=== PATIENT | female | born 2005 | race Caucasian/White ===

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

== ENCOUNTER 2024-11-07 22:34 | Emergency (ER) | payer MEDICAID ==
[2024-11-08 00:04] LABS: BASOPHILS ABSOLUTE AUTO 0.03 K/uL (0.00-0.20); BASOPHILS PERCENT AUTO 0.3 % (0.0-1.0); EOSINOPHILS ABSOLUTE AUTO 0.04 K/uL (0.00-0.45); EOSINOPHILS PERCENT AUTO 0.4 % (0.0-6.0); IMMATURE GRAN ABSOLUTE AUTO 0.13 K/uL (0.00-0.05); IMMATURE GRAN PERCENT AUTO 1.1 % (0.0-0.4); LYMPHOCYTES ABSOLUTE AUTO 2.15 K/uL (1.00-4.80); MEAN CORPUSCULAR HEMOGLOBIN 28.7 pg (28.0-32.0); MEAN CORPUSCULAR HGB CONC 34.1 g/dL (32.0-36.0); MEAN CORPUSCULAR VOLUME 84.3 fL (83.0-99.0); MEAN PLATELET VOLUME 9.7 fL (9.4-12.3); MONOCYTES ABSOLUTE AUTO 0.72 K/uL (0.00-0.80); MONOCYTES PERCENT AUTO 6.4 % (0.0-8.0); NEUTROPHILS ABSOLUTE AUTO 8.26 K/uL (1.80-7.70); NEUTROPHILS PERCENT AUTO 72.8 % (41.0-71.0); PLATELET COUNT,PLT 249 K/uL (150-400); RED BLOOD CELL COUNT 5.22 M/uL (4.10-5.30); WHITE BLOOD CELL COUNT,WBC 11.33 K/uL (3.9-11.3)
[2024-11-08 00:18] LABS: BLOOD UREA NITROGEN,BUN 14 mg/dL (7.0-18.0); CALCIUM 8.8 mg/dL (8.5-10.1); CARBON DIOXIDE,CO2 27.4 mmol/L (21.0-32.0); CHLORIDE,CL 104 mmol/L (98-107); CREATININE 0.9 mg/dL (0.6-1.0); GLUCOSE RANDOM 108 mg/dL (74-106); POTASSIUM,K 3.8 mmol/L (3.5-5.1); SODIUM,NA 141 mmol/L (136-145)
[2024-11-08 00:20] LABS: ESTIMATED GFR 94 mL/min (>60); HCG QUANTITATIVE < 1.0 mIU/mL
== END 2024-11-08 01:30 | disposition home or self-care (01) ==
LOC: MW.ED 22:34
DX: R10.2 Pelvic and perineal pain (principal); F17.210 Nicotine dependence, cigarettes, uncomplicated; Z90.49 Acquired absence of other specified parts of digestive tract
CPT/HCPCS: 36415; 76830; 76830-26; 80048; 84702; 85025; 99284

== ENCOUNTER 2025-03-02 10:00 | Emergency (ER) | payer MEDICAID ==
[2025-03-02 10:51] LABS: BILIRUBIN,URINE NEGATIVE (NEGATIVE); COLOR,URINE YELLOW; GLUCOSE,URINE NEGATIVE (NEGATIVE); KETONES,URINE 15 mg/dL (NEGATIVE); LEUKOCYTE ESTERASE,URINE MODERATE (NEGATIVE); NITRITE,URINE POSITIVE (NEGATIVE); OCCULT BLOOD,URINE NEGATIVE (NEGATIVE); PH,URINE >= 9.0 (5.0-8.0); PROTEIN,URINE 30 mg/dL (NEGATIVE)
[2025-03-02 10:52] LABS: APPEARANCE,URINE CLOUDY
[2025-03-02] MEDS: Sodium Chloride 0.9% 1,000 ML IV ONE (10:57)
[2025-03-02] MEDS: Ondansetron 4 MG/2 ML SDV IVPUSH ONE (10:57)
[2025-03-02 10:59] LABS: AMORPHOUS SEDIMENT,URINE HEAVY (NEGATIVE); BACTERIA,URINE 4+ (NEGATIVE); MUCUS,URINE LIGHT (NONE-MOD); RBC,URINE 0-2 (0-2/HPF); SQUAMOUS EPITHELIAL CELLS,UR FEW; WBC,URINE 20-25 (0-5/HPF)
[2025-03-02 11:08] LABS: BASOPHILS ABSOLUTE AUTO 0.03 K/uL (0.00-0.20); BASOPHILS PERCENT AUTO 0.4 % (0.0-1.0); EOSINOPHILS ABSOLUTE AUTO 0.02 K/uL (0.00-0.45); EOSINOPHILS PERCENT AUTO 0.3 % (0.0-6.0); HEMATOCRIT 40.6 % (37.0-47.0); HEMOGLOBIN 13.9 g/dL (12.0-16.0); IMMATURE GRAN ABSOLUTE AUTO 0.02 K/uL (0.00-0.05); IMMATURE GRAN PERCENT AUTO 0.3 % (0.0-0.4); LYMPHOCYTES ABSOLUTE AUTO 2.02 K/uL (1.00-4.80); LYMPHOCYTES PERCENT AUTO 26.5 % (24.0-44.0); MEAN CORPUSCULAR HGB CONC 34.2 g/dL (32.0-36.0); MEAN CORPUSCULAR VOLUME 84.6 fL (83.0-99.0); MEAN PLATELET VOLUME 9.7 fL (9.4-12.3); MONOCYTES ABSOLUTE AUTO 0.55 K/uL (0.00-0.80); MONOCYTES PERCENT AUTO 7.2 % (0.0-8.0); NEUTROPHILS ABSOLUTE AUTO 4.99 K/uL (1.80-7.70); NEUTROPHILS PERCENT AUTO 65.3 % (41.0-71.0); PLATELET COUNT,PLT 237 K/uL (150-400); WHITE BLOOD CELL COUNT,WBC 7.63 K/uL (3.9-11.3)
[2025-03-02] MEDS: Dextrose 5%-0.9% NaCl 1,000 ML IV STA (11:23)
[2025-03-02 11:42] LABS: A/G RATIO 1.3 (0.9-1.6); ALBUMIN 3.7 g/dL (3.4-5.0); BILIRUBIN TOTAL 0.7 mg/dL (0.2-1.0); CALCIUM 8.5 mg/dL (8.5-10.1); CARBON DIOXIDE,CO2 26.7 mmol/L (21.0-32.0); CREATININE 0.9 mg/dL (0.6-1.0); EST CRCL DRUG DOSING (CG) 86.1 mL/min; POTASSIUM,K 3.7 mmol/L (3.5-5.1); PROTEIN TOTAL,TP 6.6 g/dL (6.4-8.2)
== END 2025-03-02 13:25 | disposition home or self-care (01) ==
LOC: MW.ED 10:00
DX: O21.0 Mild hyperemesis gravidarum (principal); O23.41 Unspecified infection of urinary tract in pregnancy, first trimester; N39.0 Urinary tract infection, site not specified; Z87.891 Personal history of nicotine dependence; Z3A.08 8 weeks gestation of pregnancy
CPT/HCPCS: 36415; 80053; 81001; 83735; 84702; 84703; 85025; 87086; 96361; 96374; 99284; J2405; J7030; J7042; 87088; 87186

== ENCOUNTER 2025-03-08 15:06 | Emergency (ER) | payer MEDICAID ==
[2025-03-08 16:21] LABS: BASOPHILS ABSOLUTE AUTO 0.04 K/uL (0.00-0.20); BASOPHILS PERCENT AUTO 0.4 % (0.0-1.0); EOSINOPHILS ABSOLUTE AUTO 0.02 K/uL (0.00-0.45); EOSINOPHILS PERCENT AUTO 0.2 % (0.0-6.0); HEMATOCRIT 43.9 % (37.0-47.0); IMMATURE GRAN ABSOLUTE AUTO 0.02 K/uL (0.00-0.05); IMMATURE GRAN PERCENT AUTO 0.2 % (0.0-0.4); LYMPHOCYTES ABSOLUTE AUTO 2.36 K/uL (1.00-4.80); LYMPHOCYTES PERCENT AUTO 22.6 % (24.0-44.0); MEAN CORPUSCULAR HEMOGLOBIN 28.7 pg (28.0-32.0); MEAN CORPUSCULAR HGB CONC 34.2 g/dL (32.0-36.0); MEAN CORPUSCULAR VOLUME 84.1 fL (83.0-99.0); MEAN PLATELET VOLUME 10.1 fL (9.4-12.3); MONOCYTES ABSOLUTE AUTO 0.78 K/uL (0.00-0.80); MONOCYTES PERCENT AUTO 7.5 % (0.0-8.0); NEUTROPHILS ABSOLUTE AUTO 7.22 K/uL (1.80-7.70); NEUTROPHILS PERCENT AUTO 69.1 % (41.0-71.0); PLATELET COUNT,PLT 293 K/uL (150-400); RED BLOOD CELL COUNT 5.22 M/uL (4.10-5.30); WHITE BLOOD CELL COUNT,WBC 10.44 K/uL (3.9-11.3)
[2025-03-08 17:03] LABS: A/G RATIO 1.4 (0.9-1.6); ALBUMIN 4.2 g/dL (3.4-5.0); BILIRUBIN TOTAL 0.6 mg/dL (0.2-1.0); CARBON DIOXIDE,CO2 25.8 mmol/L (21.0-32.0); EST CRCL DRUG DOSING (CG) 70.98 mL/min; POTASSIUM,K 3.5 mmol/L (3.5-5.1); PROTEIN TOTAL,TP 7.2 g/dL (6.4-8.2)
[2025-03-08 17:38] LABS: APPEARANCE,URINE SLT CLOUDY; GLUCOSE,URINE NEGATIVE (NEGATIVE); KETONES,URINE TRACE mg/dL (NEGATIVE); LEUKOCYTE ESTERASE,URINE NEGATIVE (NEGATIVE); NITRITE,URINE NEGATIVE (NEGATIVE); OCCULT BLOOD,URINE LARGE (NEGATIVE); PH,URINE 5.5 (5.0-8.0); PROTEIN,URINE TRACE mg/dL (NEGATIVE)
[2025-03-08 17:46] LABS: BILIRUBIN,URINE SMALL (NEGATIVE); COLOR,URINE DARK YELLOW
[2025-03-08 17:47] LABS: BACTERIA,URINE FEW (NEGATIVE); CALCIUM OXALATE CRYSTALS,URINE RARE (NEGATIVE); EPITHELIAL CELLS,URINE RARE (NONE-FEW); RBC,URINE TOO NUMEROUS TO CT (0-2/HPF); WBC,URINE 0-2 (0-5/HPF)
== END 2025-03-08 18:27 | disposition home or self-care (01) ==
LOC: MW.ED 15:06
DX: O03.9 Complete or unspecified spontaneous abortion without complication (principal); Z79.899 Other long term (current) drug therapy; Z75.3 Unavailability and inaccessibility of health-care facilities
CPT/HCPCS: 36415; 76801; 76801-26; 80053; 81001; 84702; 85025; 86900; 86901; 99284

== ENCOUNTER 2025-09-30 14:10 | Emergency (ER) | payer MEDICAID, OTHER ==
[2025-09-30] MEDS: Ketorolac 30 MG/ML SDV IVPUSH ONE (14:40)
[2025-09-30] MEDS: diphenhydrAMINE 50 MG/ML SDV IVPUSH ONE (14:40)
[2025-09-30] MEDS: Ondansetron 4 MG/2 ML SDV IVPUSH ONE (14:40)
[2025-09-30 14:48] LABS: BASOPHILS ABSOLUTE AUTO 0.03 K/uL (0.00-0.20); BASOPHILS PERCENT AUTO 0.5 % (0.0-1.0); EOSINOPHILS ABSOLUTE AUTO 0.03 K/uL (0.00-0.45); EOSINOPHILS PERCENT AUTO 0.5 % (0.0-6.0); IMMATURE GRAN ABSOLUTE AUTO 0.01 K/uL (0.00-0.05); IMMATURE GRAN PERCENT AUTO 0.2 % (0.0-0.4); LYMPHOCYTES ABSOLUTE AUTO 1.77 K/uL (1.00-4.80); LYMPHOCYTES PERCENT AUTO 30.4 % (24.0-44.0); MEAN PLATELET VOLUME 9.8 fL (9.4-12.3); MONOCYTES ABSOLUTE AUTO 0.50 K/uL (0.00-0.80); MONOCYTES PERCENT AUTO 8.6 % (0.0-8.0); NEUTROPHILS ABSOLUTE AUTO 3.48 K/uL (1.80-7.70); NEUTROPHILS PERCENT AUTO 59.8 % (41.0-71.0); NRBC ABSOLUTE 0.00 K/uL (0.00-0.02); NRBC PERCENT 0.0 /100WBC (0.0-0.2); PLATELET COUNT,PLT 240 K/uL (150-400); RED BLOOD CELL COUNT 5.24 M/uL (4.10-5.30); WHITE BLOOD CELL COUNT,WBC 5.82 K/uL (3.9-11.3)
[2025-09-30 15:09] LABS: A/G RATIO 1.1 (0.9-1.6); ALANINE AMINOTRANSFERASE,ALT 43.0 IU/L (14-63); ASPARTATE AMNIOTRANSFERASE,AST 22.0 IU/L (15-37); BILIRUBIN TOTAL 0.6 mg/dL (0.2-1.0); BLOOD UREA NITROGEN,BUN 13.0 mg/dL (7.0-18.0); CARBON DIOXIDE,CO2 26.3 mmol/L (21.0-32.0); CHLORIDE,CL 106.0 mmol/L (98-107); CREATININE 1.0 mg/dL (0.6-1.0); EST CRCL DRUG DOSING (CG) 70.38 mL/min; GLUCOSE RANDOM 113.0 mg/dL (74-106); POTASSIUM,K 4.0 mmol/L (3.5-5.1); PROTEIN TOTAL,TP 7.3 g/dL (6.4-8.2); SODIUM,NA 140.0 mmol/L (136-145)
[2025-09-30 15:13] LABS: ESTIMATED GFR 82.0 mL/min (>60)
== END 2025-09-30 16:23 | disposition home or self-care (01) ==
LOC: MW.ED 14:10
DX: G43.909 Migraine, unspecified, not intractable, without status migrainosus (principal); Z90.49 Acquired absence of other specified parts of digestive tract; Z75.3 Unavailability and inaccessibility of health-care facilities
CPT/HCPCS: 36415; 70450; 80053; 84703; 85025; 85652; 86140; 96361; 96374; 96375; 99284; J1200; J1885; J2405; J2765; J7030